=== PATIENT | male | born 1985 | race Two or more races ===

== ENCOUNTER → 2022-01-10 | Outpatient (CLI) | payer OTHER | END | disposition home or self-care (01) | LOC: LAB SHORT 10:29 → LAB 10:29 | DX: L08.9 Local infection of the skin and subcutaneous tissue, unspecified (principal); R21 Rash and other nonspecific skin eruption; L81.4 Other melanin hyperpigmentation; D22.5 Melanocytic nevi of trunk; L85.3 Xerosis cutis; L57.8 Other skin changes due to chronic exposure to nonionizing radiation | CPT/HCPCS: 87070; 87077; 87147; 87186; 87205 ==

== ENCOUNTER 2024-08-07 14:01 | Emergency (ER) | payer OTHER ==
[~2024-08-07] VITALS: Ht 162.6 cm; Wt 81.7 kg
[2024-08-07 14:21] VITALS: BP 132/108
[2024-08-07] MEDS ORDERED: Ipratropium/Albuterol SulF 2.5-0.5MG/3 ML Amp INH ONE (14:25)
[2024-08-07 15:03] LABS: CORONAVIRUS COVID-19 AG Negative (NEGATIVE); INFLUENZA A AG Negative (NEGATIVE); INFLUENZA B AG Negative (NEGATIVE)
[2024-08-07] MEDS ORDERED: Prednisone20 MG PO (15:14)
[2024-08-07] MEDS ORDERED: ALBU90OI INH (15:14)
== END 2024-08-07 15:30 | disposition home or self-care (01) ==
LOC: ER 14:01
PROVIDERS: Emergency Medicine
DX: J98.01 Acute bronchospasm (principal); B34.9 Viral infection, unspecified
CPT/HCPCS: 71046; 87428-QW; 94640; 94664; 99283-25